=== PATIENT | male | born 1960 | race African-American/Black ===

== ENCOUNTER 2025-02-27 03:16 | Emergency (ER) | payer MEDICARE, OTHER ==
[~2025-02-27] VITALS: Ht 172.7 cm; Wt 91.0 kg
[2025-02-27 03:19] VITALS: O2SAT 98
[2025-02-27 04:40] VITALS: TEMP 37.1; O2SAT 98
[2025-02-27] MEDS: SODIUM CHLORIDE 0.9% 1,000 ML IV ONE (04:45)
[2025-02-27 05:06] VITALS: BP 145/83; PULSE 86; RESP 16
[2025-02-27] MEDS: KETOROLAC 30MG/ML VIAL IV ONE (05:06)
[2025-02-27 05:23] LABS: BASOPHILS % 0.5 % (0.0-2.0); EOSINOPHILS % 1.7 % (0.0-5.0); HEMATOCRIT. 43.7 % (42.0-52.0); HEMOGLOBIN. 14.2 g/dL (14.0-18.0); LYMPHOCYTES % 30.0 % (20.0-50.0); MEAN PLATELET VOLUME 9.3 fl (7.4-10.4); MONOCYTES % 12.2 % (2.0-8.0); NEUTROPHILS % 55.6 % (40.0-76.0); PLATELET 262 x1000/uL (130-400); RED BLOOD CELL COUNT 4.76 mill/uL (4.7-6.1); RED CELL DISTRIBUTION WIDTH 13.6 % (11.6-14.6)
[2025-02-27 05:30] LABS: CLARITY URINE CLEAR (CLEAR); COLOR URINE YELLOW (YELLOW); GLUCOSE URINE 2+ (NEGATIVE); KETONES URINE NEGATIVE (NEGATIVE); LEUKOCYTE ESTERASE URINE NEGATIVE (NEGATIVE); NITRITE URINE NEGATIVE (NEGATIVE); OCCULT BLOOD URINE NEGATIVE (NEGATIVE); PH URINE 5.5 (4.5-8.0); PROTEIN URINE NEGATIVE (NEGATIVE); SPECIFIC GRAVITY URINE 1.017 (1.005-1.030); UROBILINOGEN URINE 1.0 E.U./dL (0.2-1.0)
[2025-02-27 05:36] LABS: CREATININE 1.0 mg/dL (0.6-1.3); UREA NITROGEN BLOOD 8 mg/dL (9-23)
[2025-02-27 05:37] LABS: PROTEIN TOTAL 6.3 g/dL (6.0-8.3)
[2025-02-27 05:38] LABS: ASPARTATE AMINOTRANSFERASE 14 IU/L (<34); BILIRUBIN DIRECT 0.2 mg/dL (<=3.0); BILIRUBIN TOTAL 0.6 mg/dL (0.1-1.0)
[2025-02-27] MEDS: CYCLOBENZAPRINE 10MG TABLET PO ONE (05:56)
[2025-02-27] MEDS ORDERED: IBUP-2030 MT (05:58)
[2025-02-27] MEDS ORDERED: LIDO-53 TP (05:58)
[2025-02-27] MEDS ORDERED: METH-653 MT (05:58)
[2025-02-27 06:48] LABS: BACTERIA URINE NONE SEEN; RBC URINE NONE SEEN /hpf (0-2); SQUAMOUS EPITHELIAL CELL URINE RARE /lpf (RARE/1+); WBC URINE NONE SEEN /hpf (0-2)
== END 2025-02-27 06:32 | disposition home or self-care (01) ==
LOC: ER 03:22
DX: R10.12 Left upper quadrant pain (principal); E11.9 Type 2 diabetes mellitus without complications; E78.00 Pure hypercholesterolemia, unspecified; I10 Essential (primary) hypertension
CPT/HCPCS: 99285; 74176; 96374; 96361; 80076; 80048; 81003; 83690; 85025; 36415; J1885; J7030